=== PATIENT | female | born 1990 | race Hispanic/Latino ===

== ENCOUNTER 2023-11-06 21:25 | Emergency (ER) | payer SELFPAY, OTHER ==
[2023-11-06] MEDS ORDERED: IBUPROFEN 400 MG TAB ONE (22:09)
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
[2023-11-06 23:08] VITALS: O2SAT 100
[2023-11-06 23:10] VITALS: BP 138/99; TEMP 97.6
== END 2023-11-06 23:02 | disposition home or self-care (01) ==
LOC: ER 21:25
DX: S16.1XXA Strain of muscle, fascia and tendon at neck level, initial encounter (principal); V49.49XA Driver injured in collision with other motor vehicles in traffic accident, initial encounter
CPT/HCPCS: 72040; 99284